=== PATIENT | male | born 1940 | race Caucasian/White ===

== ENCOUNTER 2018-12-02 16:42 | Emergency (ER) | payer OTHER ==
[2018-12-02] MEDS: SODIUM CHLORIDE 0.9% 1L BAG IV* (17:49)
[2018-12-02] MEDS: ACETAMINOPHEN 325 MG TAB PO (17:49)
[2018-12-02] MEDS: ONDANSETRON 4 MG INJ IV (17:50)
[2018-12-02] MEDS: PIPER-TAZO 3.375 GM IV (PMX) 100 ML IVPB (17:50)
[2018-12-02] MEDS: morphine 4 MG/ML VIAL IV (17:50)
[2018-12-02 17:52] LABS: ADD MAN DIFF? NO
[2018-12-02 17:56] LABS: ABNORMAL IP MESSAGE 1; BASOPHIL # 0.1 10^3/ul (0.0-0.1); BASOPHILS % 0.3 % (0.0-2.0); HEMATOCRIT 45.3 % (42.0-52.0); HEMOGLOBIN 14.9 g/dl (14.0-18.0); LYMPHOCYTES % 4.5 % (15.0-51.0); MEAN CORPUSCULAR HEMOGLOBIN 29.4 pg (29.0-33.0); MEAN CORPUSCULAR HGB CONC 32.9 g/dl (32.0-37.0); MEAN CORPUSCULAR VOLUME 89.3 fl (82.0-101.0); MEAN PLATELET VOLUME 11.4 fl (7.4-10.4); MONOCYTE # 1.6 10^3/ul (0.3-0.9); NEUTROPHIL # 19.8 10^3/ul (1.6-7.5); NEUTROPHILS % 87.7 % (39.0-77.0); PLATELET COUNT 182 10^3/UL (140-415); POSITIVE DIFF @See below; RED BLOOD COUNT 5.07 10^6/ul (4.70-6.10); RED CELL DISTRIBUTION WIDTH 13.2 % (11.5-14.5)
[2018-12-02 17:56] LABS: WHITE BLOOD COUNT 22.6 10^3/ul (4.8-10.8)
[2018-12-02 18:14] LABS: ALANINE AMINOTRANSFERASE 20 IU/L (13-69); ALBUMIN 4.3 g/dl (3.3-4.9); ALBUMIN/GLOBULIN RATIO 1.16; ALKALINE PHOSPHATASE 77 IU/L (42-121); ANION GAP 14 (5-13); ASPARTATE AMINO TRANSFERASE 29 IU/L (15-46); BILIRUBIN,INDIRECT 1.3 mg/dl (0-1.1); BILIRUBIN,TOTAL 1.3 mg/dl (0.2-1.3); BLOOD UREA NITROGEN 31 mg/dl (7-20); CALCIUM 10.1 mg/dl (8.4-10.2); CARBON DIOXIDE 24 mmol/L (21-31); CHLORIDE 103 mmol/L (97-110); CREATININE 1.47 mg/dl (0.61-1.24); GLUCOSE 158 mg/dl (70-220); LIPASE < 10 U/L (23-300); POTASSIUM 3.6 mmol/L (3.5-5.1); SODIUM 141 mmol/L (135-144)
[2018-12-02 18:16] LABS: INR 1.46; PROTIME 17.8 Sec (11.9-14.9); PT RATIO 1.4
[2018-12-02 18:17] LABS: PARTIAL THROMBOPLASTIN TIME 30.2 Sec (23.0-35.0)
[2018-12-02 18:25] LABS: TROPONIN-I 0.027 ng/ml (0.000-0.120)
== END 2018-12-02 22:10 | disposition short-term general hospital (02) ==
LOC: E/R 16:42
DX: K81.0 Acute cholecystitis (principal); A41.9 Sepsis, unspecified organism; N28.9 Disorder of kidney and ureter, unspecified; I10 Essential (primary) hypertension; Z79.82 Long term (current) use of aspirin; Z85.038 Personal history of other malignant neoplasm of large intestine
CPT/HCPCS: 36415; 71045; 74176; 76705; 80053; 83605; 83690; 84484; 85025; 85610; 85730; 87040; 93005; 96374; 96375; 99291-25